=== PATIENT | female | born 1940 | race Two or more races ===

== ENCOUNTER 2016-08-25 15:11 | Inpatient (IN) | payer MEDICARE ==
[~2016-08-25] VITALS: Ht 157.5 cm; Wt 65.3 kg
[2016-08-25 16:00] VITALS: BP 93/66
[2016-08-25] MEDS ORDERED: FURO-144 PO (16:21)
[2016-08-25] MEDS ORDERED: LISI2.5T2 PO (16:21)
[2016-08-25] MEDS ORDERED: METF500T4 PO (16:21)
[2016-08-25] MEDS ORDERED: TEMA30CA PO (16:21)
[2016-08-25] MEDS ORDERED: ESOM40CA PO (16:21)
[2016-08-25] MEDS ORDERED: RIVA10TA PO (16:21)
[2016-08-25] MEDS ORDERED: ATOR40TA PO (16:21)
[2016-08-25] MEDS ORDERED: UMEC1BLS IH (16:21)
[2016-08-25] MEDS ORDERED: MELA5TAB PO (16:21)
[2016-08-25] MEDS ORDERED: LEVO75TA7 PO (16:21)
[2016-08-25] MEDS ORDERED: DAPA10TA PO (16:21)
[2016-08-25] MEDS ORDERED: FEBU80TA PO (16:21)
[2016-08-25] MEDS ORDERED: ALBU6.7H INH (16:21)
[2016-08-25] MEDS ORDERED: AZITHROMYCIN 250 MG TABLET PO ONE (18:30)
[2016-08-25] MEDS ORDERED: MAGNESIUM HYDROXIDE 30 ML UDC PO PRN (18:30)
[2016-08-25] MEDS ORDERED: ONDANSETRON HCL/PF 4 MG/2 ML VIAL IVP PRN (18:30)
[2016-08-25] MEDS ORDERED: ACETAMINOPHEN 325 MG TABLET PO PRN (18:30)
[2016-08-25] MEDS ORDERED: ZOLPIDEM TARTRATE 5 MG TABLET PO PRN (18:30)
[2016-08-25] MEDS ORDERED: DEXTROSE 50%-WATER 50 ML DISP.SYRIN IV PRN (18:30)
[2016-08-25] MEDS ORDERED: Z GUARD REMEDY 2 OZ OINT TP PRN (18:30)
[2016-08-25] MEDS ORDERED: HYDROCODONE/APAP 5/325MG 1 EACH TABLET PO PRN (18:30)
[2016-08-25] MEDS ORDERED: MAG HYDROX/AL HYDROX/SIMETH 30 ML UDC PO PRN (18:30)
[2016-08-25] MEDS: ALBUTEROL FS 2.5 MG/3 ML VIAL.NEB NEB SCH ×2 (19:32→23:12)
[2016-08-25] MEDS: IPRATROPIUM NEB FS 0.5 MG/2.5 ML AMPUL.NEB NEB SCH ×2 (19:32→23:12)
[2016-08-25 20:00] VITALS: BP 94/56
[2016-08-25] MEDS: TEMAZEPAM 15 MG CAPSULE PO SCH (21:20)
[2016-08-25] MEDS ORDERED: Medication Not On Formulary EA (Melatonin 5 MG) PO SCH (22:00)
[2016-08-25] MEDS: BLOOD SUGAR DIAGNOSTIC 1 EACH STRIP IN SCH (22:20)
[2016-08-26] MEDS: ALBUTEROL FS 2.5 MG/3 ML VIAL.NEB NEB SCH ×6 (03:17→23:38)
[2016-08-26] MEDS: IPRATROPIUM NEB FS 0.5 MG/2.5 ML AMPUL.NEB NEB SCH ×6 (03:18→23:38)
[2016-08-26] MEDS: BLOOD SUGAR DIAGNOSTIC 1 EACH STRIP IN SCH ×4 (07:33→21:37)
[2016-08-26 08:00] VITALS: BP 99/58
[2016-08-26] MEDS: PANTOPRAZOLE 40 MG TABLET.DR PO SCH (08:19)
[2016-08-26] MEDS: ATORVASTATIN 40 MG TABLET PO SCH (08:19)
[2016-08-26] MEDS: METFORMIN 500 MG TABLET PO SCH ×2 (08:19→16:49)
[2016-08-26] MEDS: LEVOTHYROXINE SODIUM 75 MCG TABLET PO SCH (08:19)
[2016-08-26] MEDS: LISINOPRIL (5MG) 5 MG TABLET PO SCH (08:20)
[2016-08-26] MEDS: FUROSEMIDE 40 MG TABLET PO SCH ×2 (08:20→16:49)
[2016-08-26] MEDS: methylPREDNISolone SOD SUCC 125 MG/2ML VIAL IV SCH (08:20)
[2016-08-26 08:25] LABS: CALCIUM, SERUM 9.6 mg/dL (8.5-10.1); CREATININE 1.4 mg/dL (0.6-1.3); PHOSPHORUS 3.9 mg/dL (2.5-4.9); POTASSIUM 3.3 mmol/L (3.5-5.1)
[2016-08-26 08:31] LABS: BASOPHILS % (AUTO) 0.1 % (0.0-2.0); DIFF TOTAL % 100 %; HEMATOCRIT 34 % (33-45); HEMOGLOBIN 10.9 g/dL (11.5-14.8); LYMPHOCYTES % (AUTO) 9.6 % (20.0-44.0); MEAN CORPUSCULAR HEMOGLOBIN 26 PG (26.0-33.0); MEAN CORPUSCULAR HGB CONC 32 g/dl (31.0-36.0); MEAN CORPUSCULAR VOLUME 82 fL (82-100); MONOCYTES # (AUTO) 0.7 /CMM (0.1-1.30); MONOCYTES % (AUTO) 7.2 % (2.0-12.0); NEUTROPHILS # (AUTO) 8.3 /CMM (1.8-8.9); NEUTROPHILS % (AUTO) 83.1 % (43.0-81.0); PLATELET COUNT (AUTO) 311 /CMM (150-450); RED BLOOD CELL COUNT(AUTO) 4.16 MIL/uL (4.0-5.2); WHITE BLOOD COUNT (AUTO) 9.9 K/uL (4.3-11.0)
[2016-08-26] MEDS ORDERED: Medication Not On Formulary EA (Esomeprazole Mag Trihydrate (Nexium) 40 MG) PO SCH (09:00)
[2016-08-26] MEDS ORDERED: RIVAROXABAN 10 MG TABLET PO SCH (09:00)
[2016-08-26] MEDS ORDERED: Dapagliflozin Propanediol (Farxiga) 10 MG PO SCH (09:00)
[2016-08-26] MEDS ORDERED: POTASSIUM CHLORIDE 20 MEQ TAB.PRT.SR PO ONE (12:00)
[2016-08-26 16:00] VITALS: BP 107/59
[2016-08-26] MEDS: FERROUS SULFATE (325 MG) 325 MG/TAB TABLET PO SCH (16:49)
[2016-08-26] MEDS: RIVAROXABAN 15 MG TABLET PO SCH (16:50)
[2016-08-26] MEDS: AZITHROMYCIN 250 MG TABLET PO SCH (18:45)
[2016-08-26 20:00] VITALS: BP 114/71
[2016-08-26] MEDS: TEMAZEPAM 15 MG CAPSULE PO SCH (21:37)
[2016-08-26 22:00] VITALS: BP 114/71
[2016-08-26] MEDS ORDERED: DEXTROSE 50%-WATER 50 ML DISP.SYRIN IV PRN (22:00)
[2016-08-26] MEDS: *INSULIN REGULAR(HUMULIN R)HUM 100 UNIT/ML VIAL SQ PRN (22:01)
[2016-08-27] MEDS ORDERED: INSULIN REGULAR, HUMAN 100 UNIT/ML 10 ML VIAL ONE (00:33)
[2016-08-27] MEDS: ALBUTEROL FS 2.5 MG/3 ML VIAL.NEB NEB SCH ×6 (03:18→22:48)
[2016-08-27] MEDS: IPRATROPIUM NEB FS 0.5 MG/2.5 ML AMPUL.NEB NEB SCH ×6 (03:18→22:48)
[2016-08-27] MEDS: BLOOD SUGAR DIAGNOSTIC 1 EACH STRIP IN SCH ×4 (06:25→21:23)
[2016-08-27] MEDS: INSULIN REGULAR, HUMAN 100 UNIT/ML 3 ML VIAL SQ PRN ×3 (06:34→16:47)
[2016-08-27 08:00] VITALS: BP 108/69
[2016-08-27 08:20] LABS: CALCIUM, SERUM 8.4 mg/dL (8.5-10.1); CREATININE 1.1 mg/dL (0.6-1.3)
[2016-08-27 08:28] LABS: POTASSIUM 2.8 mmol/L (3.5-5.1)
[2016-08-27] MEDS: LISINOPRIL (5MG) 5 MG TABLET PO SCH (09:00)
[2016-08-27] MEDS: PANTOPRAZOLE 40 MG TABLET.DR PO SCH (09:09)
[2016-08-27] MEDS: FERROUS SULFATE (325 MG) 325 MG/TAB TABLET PO SCH ×2 (09:09→16:03)
[2016-08-27] MEDS: methylPREDNISolone SOD SUCC 125 MG/2ML VIAL IV SCH (09:09)
[2016-08-27] MEDS: METFORMIN 500 MG TABLET PO SCH ×2 (09:10→16:02)
[2016-08-27] MEDS: LEVOTHYROXINE SODIUM 75 MCG TABLET PO SCH (09:10)
[2016-08-27] MEDS: ATORVASTATIN 40 MG TABLET PO SCH (09:13)
[2016-08-27] MEDS ORDERED: POTASSIUM CHLORIDE 20 MEQ TAB.PRT.SR PO ONE (09:30)
[2016-08-27] MEDS: FUROSEMIDE 40 MG TABLET PO SCH (10:14)
[2016-08-27] MEDS ORDERED: IV SET PRIMARY PUMP SET 1 EA INFUS.SET MC ONE (14:55)
[2016-08-27] MEDS ORDERED: SECONDARY IV SET 1 EA INFUS.SET MC ONE (14:55)
[2016-08-27] MEDS ORDERED: IV NS 0.9% 250 ML IV ONE (14:55)
[2016-08-27] MEDS: CEFTRIAXONE 1 G in IV D5W 50 ML IV SCH (15:00)
[2016-08-27] MEDS: FLUTICASONE/SALMETEROL DISKUS IH SCH ×2 (15:00→21:23)
[2016-08-27] MEDS: GUAIFENESIN/D-METHORPHAN HB 5 ML UDC PO PRN (15:16)
[2016-08-27 16:00] VITALS: BP 111/80
[2016-08-27] MEDS: RIVAROXABAN 15 MG TABLET PO SCH (16:04)
[2016-08-27] MEDS: AZITHROMYCIN 250 MG TABLET PO SCH (17:39)
[2016-08-27 20:00] VITALS: BP 107/69
[2016-08-27] MEDS: TEMAZEPAM 15 MG CAPSULE PO SCH (21:23)
[2016-08-27] MEDS: *INSULIN REGULAR(HUMULIN R)HUM 100 UNIT/ML VIAL SQ PRN (21:29)
[2016-08-28] MEDS: IPRATROPIUM NEB FS 0.5 MG/2.5 ML AMPUL.NEB NEB SCH ×6 (03:25→22:46)
[2016-08-28] MEDS: ALBUTEROL FS 2.5 MG/3 ML VIAL.NEB NEB SCH ×6 (03:25→22:46)
[2016-08-28] MEDS: LEVOTHYROXINE SODIUM 75 MCG TABLET PO SCH (06:45)
[2016-08-28] MEDS: BLOOD SUGAR DIAGNOSTIC 1 EACH STRIP IN SCH ×4 (06:45→22:33)
[2016-08-28] MEDS: PANTOPRAZOLE 40 MG TABLET.DR PO SCH (06:45)
[2016-08-28 06:50] LABS: BASOPHILS % (AUTO) 0.1 % (0.0-2.0); DIFF TOTAL % 100 %; HEMATOCRIT 32 % (33-45); HEMOGLOBIN 10.3 g/dL (11.5-14.8); LYMPHOCYTES % (AUTO) 24.1 % (20.0-44.0); MEAN CORPUSCULAR HEMOGLOBIN 27 PG (26.0-33.0); MEAN CORPUSCULAR HGB CONC 33 g/dl (31.0-36.0); MEAN CORPUSCULAR VOLUME 82 fL (82-100); MONOCYTES # (AUTO) 0.9 /CMM (0.1-1.30); MONOCYTES % (AUTO) 10.5 % (2.0-12.0); NEUTROPHILS # (AUTO) 5.4 /CMM (1.8-8.9); NEUTROPHILS % (AUTO) 65.3 % (43.0-81.0); PLATELET COUNT (AUTO) 294 /CMM (150-450); RED BLOOD CELL COUNT(AUTO) 3.89 MIL/uL (4.0-5.2); WHITE BLOOD COUNT (AUTO) 8.3 K/uL (4.3-11.0)
[2016-08-28 06:59] LABS: CALCIUM, SERUM 8.7 mg/dL (8.5-10.1); CREATININE 1.1 mg/dL (0.6-1.3); PHOSPHORUS 2.4 mg/dL (2.5-4.9); POTASSIUM 3.1 mmol/L (3.5-5.1)
[2016-08-28 08:00] VITALS: BP 113/80
[2016-08-28] MEDS: ATORVASTATIN 40 MG TABLET PO SCH (08:34)
[2016-08-28] MEDS: METFORMIN 500 MG TABLET PO SCH ×2 (08:34→16:26)
[2016-08-28] MEDS: FERROUS SULFATE (325 MG) 325 MG/TAB TABLET PO SCH ×2 (08:34→16:27)
[2016-08-28] MEDS: FLUTICASONE/SALMETEROL DISKUS IH SCH ×2 (08:34→21:15)
[2016-08-28] MEDS: FUROSEMIDE 20 MG/2 ML VIAL IV SCH (08:35)
[2016-08-28] MEDS: GUAIFENESIN/D-METHORPHAN HB 5 ML UDC PO PRN ×4 (08:47→22:47)
[2016-08-28] MEDS: LISINOPRIL (5MG) 5 MG TABLET PO SCH (09:00)
[2016-08-28] MEDS: BENZONATATE 100 MG CAPSULE PO PRN ×2 (10:28→18:28)
[2016-08-28] MEDS ORDERED: POTASSIUM CHLORIDE 20 MEQ TAB.PRT.SR PO ONE (11:30)
[2016-08-28] MEDS: INSULIN REGULAR, HUMAN 100 UNIT/ML 3 ML VIAL SQ PRN ×2 (11:41→16:31)
[2016-08-28] MEDS ORDERED: K PHOS NEUTRAL 250 MG TABLET PO ONE (13:00)
[2016-08-28] MEDS: CEFTRIAXONE 1 G in IV D5W 50 ML IV SCH (13:49)
[2016-08-28 16:00] VITALS: BP 97/56
[2016-08-28] MEDS: RIVAROXABAN 15 MG TABLET PO SCH (16:27)
[2016-08-28] MEDS: AZITHROMYCIN 250 MG TABLET PO SCH (18:02)
[2016-08-28 20:21] VITALS: BP 117/68
[2016-08-28] MEDS: TEMAZEPAM 15 MG CAPSULE PO SCH (22:33)
[2016-08-28] MEDS: *INSULIN REGULAR(HUMULIN R)HUM 100 UNIT/ML VIAL SQ PRN (23:46)
[2016-08-29] MEDS: ALBUTEROL FS 2.5 MG/3 ML VIAL.NEB NEB SCH ×6 (03:31→23:26)
[2016-08-29] MEDS: IPRATROPIUM NEB FS 0.5 MG/2.5 ML AMPUL.NEB NEB SCH ×6 (03:31→23:27)
[2016-08-29] MEDS: PANTOPRAZOLE 40 MG TABLET.DR PO SCH (06:41)
[2016-08-29] MEDS: LEVOTHYROXINE SODIUM 75 MCG TABLET PO SCH (06:41)
[2016-08-29] MEDS: BLOOD SUGAR DIAGNOSTIC 1 EACH STRIP IN SCH ×4 (06:41→20:48)
[2016-08-29] MEDS: BENZONATATE 100 MG CAPSULE PO PRN ×2 (06:41→12:37)
[2016-08-29 07:10] LABS: CALCIUM, SERUM 8.8 mg/dL (8.5-10.1); PHOSPHORUS 3.2 mg/dL (2.5-4.9)
[2016-08-29] MEDS: GUAIFENESIN/D-METHORPHAN HB 5 ML UDC PO PRN ×2 (07:44→12:37)
[2016-08-29 08:00] VITALS: BP 106/67
[2016-08-29] MEDS: LISINOPRIL (5MG) 5 MG TABLET PO SCH (09:00)
[2016-08-29] MEDS: METFORMIN 500 MG TABLET PO SCH ×2 (09:25→16:40)
[2016-08-29] MEDS: ATORVASTATIN 40 MG TABLET PO SCH (09:25)
[2016-08-29] MEDS: FLUTICASONE/SALMETEROL DISKUS IH SCH ×2 (09:25→20:48)
[2016-08-29] MEDS: FERROUS SULFATE (325 MG) 325 MG/TAB TABLET PO SCH ×2 (09:26→16:40)
[2016-08-29] MEDS: FUROSEMIDE 20 MG/2 ML VIAL IV SCH (09:26)
[2016-08-29] MEDS ORDERED: POTASSIUM CHLORIDE 20 MEQ TAB.PRT.SR PO ONE (10:30)
[2016-08-29] MEDS: CEFTRIAXONE 1 G in IV D5W 50 ML IV SCH (13:51)
[2016-08-29 16:00] VITALS: BP 97/69
[2016-08-29] MEDS: RIVAROXABAN 15 MG TABLET PO SCH (16:42)
[2016-08-29 20:00] VITALS: BP 121/64
[2016-08-29] MEDS: TEMAZEPAM 15 MG CAPSULE PO SCH (22:01)
[2016-08-30] MEDS: IPRATROPIUM NEB FS 0.5 MG/2.5 ML AMPUL.NEB NEB SCH ×4 (03:35→14:57)
[2016-08-30] MEDS: ALBUTEROL FS 2.5 MG/3 ML VIAL.NEB NEB SCH ×4 (03:37→14:57)
[2016-08-30] MEDS: BLOOD SUGAR DIAGNOSTIC 1 EACH STRIP IN SCH ×2 (05:23→12:16)
[2016-08-30 07:09] VITALS: BP 147/85
[2016-08-30] MEDS: PANTOPRAZOLE 40 MG TABLET.DR PO SCH (07:35)
[2016-08-30] MEDS: LEVOTHYROXINE SODIUM 75 MCG TABLET PO SCH (07:35)
[2016-08-30 08:00] VITALS: BP 115/73
[2016-08-30 08:00] LABS: BASOPHILS % (AUTO) 0.4 % (0.0-2.0); DIFF TOTAL % 100 %; EOSINOPHILS # (AUTO) 0.2 /CMM (0.0-0.7); EOSINOPHILS % (AUTO) 2.9 % (0.0-6.0); HEMATOCRIT 36 % (33-45); HEMOGLOBIN 11.3 g/dL (11.5-14.8); LYMPHOCYTES # (AUTO) 2.8 /CMM (0.8-4.8); LYMPHOCYTES % (AUTO) 40.6 % (20.0-44.0); MEAN CORPUSCULAR HEMOGLOBIN 26 PG (26.0-33.0); MEAN CORPUSCULAR HGB CONC 32 g/dl (31.0-36.0); MEAN CORPUSCULAR VOLUME 82 fL (82-100); MONOCYTES # (AUTO) 0.6 /CMM (0.1-1.30); MONOCYTES % (AUTO) 8.2 % (2.0-12.0); NEUTROPHILS # (AUTO) 3.3 /CMM (1.8-8.9); NEUTROPHILS % (AUTO) 47.9 % (43.0-81.0); PLATELET COUNT (AUTO) 354 /CMM (150-450); RED BLOOD CELL COUNT(AUTO) 4.32 MIL/uL (4.0-5.2); WHITE BLOOD COUNT (AUTO) 6.9 K/uL (4.3-11.0)
[2016-08-30 08:21] LABS: CALCIUM, SERUM 9.4 mg/dL (8.5-10.1); CREATININE 0.9 mg/dL (0.6-1.3); PHOSPHORUS 2.8 mg/dL (2.5-4.9); POTASSIUM 3.5 mmol/L (3.5-5.1)
[2016-08-30] MEDS: ATORVASTATIN 40 MG TABLET PO SCH (08:46)
[2016-08-30] MEDS: FLUTICASONE/SALMETEROL DISKUS IH SCH (08:46)
[2016-08-30 08:47] VITALS: BP 147/85
[2016-08-30] MEDS: LISINOPRIL (5MG) 5 MG TABLET PO SCH (08:47)
[2016-08-30] MEDS: METFORMIN 500 MG TABLET PO SCH (08:47)
[2016-08-30] MEDS: FERROUS SULFATE (325 MG) 325 MG/TAB TABLET PO SCH (08:48)
[2016-08-30] MEDS: FUROSEMIDE 20 MG/2 ML VIAL IV SCH (08:48)
[2016-08-30] MEDS ORDERED: FUROSEMIDE 80 MG TABLET PO SCH (09:00)
[2016-08-30] MEDS ORDERED: LEVOFLOXACIN (500MG) 500 MG TABLET PO ONE (09:00)
[2016-08-30] MEDS: GUAIFENESIN/D-METHORPHAN HB 5 ML UDC PO PRN (09:06)
[2016-08-30] MEDS: BENZONATATE 100 MG CAPSULE PO PRN (09:06)
[2016-08-30] MEDS ORDERED: FLUT1DIS3 INH (09:22)
[2016-08-30] MEDS ORDERED: BENZ-13 PO (09:22)
[2016-08-30] MEDS ORDERED: LEVO500T15 PO (09:22)
[2016-08-30] MEDS ORDERED: SECONDARY IV SET 1 EA INFUS.SET MC ONE (09:57)
[2016-08-30] MEDS: Magnesium 1GM/D5W 100ML PREMIX 100 ML IV SCH ×2 (10:20→11:45)
[2016-08-31] MEDS ORDERED: LEVOFLOXACIN (250MG) 250 MG TABLET PO SCH (09:00)
== END 2016-08-30 14:40 | disposition home or self-care (01) | DRG 189 ==
LOC: TELE 15:11 → MED 08-26 09:39
PROVIDERS: ADMIT Family Medicine; ATTEND Family Medicine
DX: J96.01 Acute respiratory failure with hypoxia (principal); N17.0 Acute kidney failure with tubular necrosis; J44.1 Chronic obstructive pulmonary disease with (acute) exacerbation; I42.9 Cardiomyopathy, unspecified; E87.1 Hypo-osmolality and hyponatremia; I12.9 Hypertensive chronic kidney disease with stage 1 through stage 4 chronic kidney disease, or unspecified chronic kidney disease; E11.22 Type 2 diabetes mellitus with diabetic chronic kidney disease; N18.9 Chronic kidney disease, unspecified; E03.9 Hypothyroidism, unspecified; E78.5 Hyperlipidemia, unspecified; E83.42 Hypomagnesemia; E86.1 Hypovolemia; E87.6 Hypokalemia; K21.9 Gastro-esophageal reflux disease without esophagitis; Z95.0 Presence of cardiac pacemaker; I48.91 Unspecified atrial fibrillation; Z95.2 Presence of prosthetic heart valve; D63.8 Anemia in other chronic diseases classified elsewhere
CPT/HCPCS: 36415; 71010-TC; 80048-TC; 80061-TC; 82728-TC; 82962-TC; 83540-TC; 83735-TC; 84100-TC; 85025-TC; 87081-TC; 87400; 92521; 93307-TC; 94799-TC; 97001-TC; 97003-TC; 97116-TC; 97530-TC; J0696; J1815; J1940; J2930; J3475; J7050; J7060